=== PATIENT | female | born 1990 | race Caucasian/White ===

== ENCOUNTER 2016-06-05 17:43 | Emergency (ER) | payer OTHER ==
[~2016-06-05] VITALS: Ht 157.5 cm; Wt 63.5 kg
[2016-06-05 18:05] LABS: URINE BILIRUBIN NEGATIVE (Negative); URINE BLOOD NEGATIVE (Negative); URINE COLOR YELLOW; URINE GLUCOSE-RANDOM* NEGATIVE (Negative); URINE KETONES NEGATIVE (Negative); URINE LEUKOCYTES-REFLEX 1+ (Negative); URINE PROTEIN (DIPSTICK) NEGATIVE (Negative); URINE SPECIFIC GRAVITY <= 1.005 (1.003-1.035); URINE UROBILINOGEN 0.2 E.U./dl (0.2-1.0)
[2016-06-05 18:12] LABS: CASTS None Seen /LPF (None Seen); CRYSTALS None Seen /LPF (None Seen); SQUAMOUS 0-3 Few /LPF (0-3); URINE RBC None Seen /HPF (0-2); URINE WBC-REFLEX 0-5 Rare /HPF (0-5)
[2016-06-05] MEDS ORDERED: MEMORY PO (18:18)
[2016-06-05] MEDS ORDERED: FOCUS PO (18:18)
[2016-06-05] MEDS ORDERED: BENADRYL25 MG PO (18:18)
[2016-06-05 18:34] LABS: ABSOLUTE NEUTROPHILS 3.7 thou/uL (1.4-8.2); BASOPHILS 0.8 % (0.0-2.0); EOSINOPHILS 1.1 % (0.0-3.0); HEMATOCRIT 37.9 % (37.0-47.0); HEMOGLOBIN 12.2 gm/dL (12.0-15.0); LYMPHOCYTES 18.9 % (24.0-44.0); MCH 26.3 pg (26.0-34.0); MCHC 32.2 % (28.0-37.0); MCV 81.5 fL (80.0-100.0); MONOCYTES 8.4 % (1.0-8.0); PLATELET COUNT 285 thou/uL (150-400); POLYS 70.8 % (36.0-66.0); RBC 4.65 mil/uL (4.20-5.00); RDW 16.7 % (10.5-14.5); WBC 5.2 thou/uL (4.0-11.0)
[2016-06-05 18:35] LABS: MANUAL DIFF NO
[2016-06-05 18:45] LABS: CALCIUM 8.7 mg/dL (8.5-10.1); CREATININE 0.7 mg/dL (0.6-1.3); POTASSIUM 3.4 mmol/L (3.5-5.1)
[2016-06-05 18:50] LABS: ALBUMIN 4.4 g/dL (3.4-5.0); TOTAL BILIRUBIN 0.2 mg/dL (<0.1-1.0); TOTAL PROTEIN 8.6 g/dL (6.4-8.2)
[2016-06-05 21:24] VITALS: BP 124/89
[2016-06-06 13:11] LABS: CHLAMYDIA TRACHOMATIS-PCR Negative (Negative); NEISSERIA GONORRHEA-PCR Negative (Negative)
== END 2016-06-05 21:26 | disposition home or self-care (01) ==
LOC: ER 17:43
PROVIDERS: Physician Assistant
DX: D25.9 Leiomyoma of uterus, unspecified (principal); J06.9 Acute upper respiratory infection, unspecified; M79.1 Myalgia; F10.99 Alcohol use, unspecified with unspecified alcohol-induced disorder; R10.9 Unspecified abdominal pain